=== PATIENT | female | born 1960 | race Caucasian/White ===

== ENCOUNTER 2018-12-04 16:43 | Emergency (ER) | payer SELFPAY ==
--- NOTE | 2018-12-04 16:47 | NUR ---
called , no answer
--- NOTE | 2018-12-04 16:57 | NUR ---
called, no answer
--- NOTE | 2018-12-04 17:07 | NUR ---
called, no answer
== END 2018-12-04 17:08 | disposition left against medical advice (07) ==
LOC: ER 16:43
DX: Z53.21 Procedure and treatment not carried out due to patient leaving prior to being seen by health care provider (principal)